=== PATIENT | female | born 1985 | race Two or more races ===

== ENCOUNTER → 2020-04-26 | Outpatient (CLI) | payer OTHER ==
[~2020-04-26] MED LIST: ASPI81CH33 PO; IBUP80TA PO; OXYC1TAB23 PO; PRENTAB9 PO; TUMS750C22 PO
--- NOTE | 2020-06-13 09:23 | REP ---
OB ULTRASOUND TECHNIQUE: Real time sonographic evaluation of gravid uterus performed. There is a single living intrauterine gestation. The estimated gestational age is 35 weeks, 1 day, based on today's ultrasound measurements. EDC 05/30/2020. This corresponds well with the EDC based on the last menstrual period of 05/31/2020. position is cephalic. Placenta is anterior and grade 2 with no previa or abruption. Visualized anatomy today includes the spine, three vessel cord, lateral ventricles, stomach, thalami, kidneys and bladder, which were all grossly unremarkable. Posterior fossa, four chamber heart, ventricular outflow tracts, and cord insertion, as well as upper lip are not well visualized. BPD = 86 mm = 35 weeks, 6 days. AC = 307 mm = 34 weeks, 5 days. HC = 317 mm = 35 weeks, 5 days. FL = 66 mm = 33 weeks, 6 days. heart rate was 142 beats per minute. Amniotic fluid appears within normal limits with AVEL of 15.72. MTDD
== END ==
LOC: M RAD 15:15
PROVIDERS: ATTEND Advanced Practice Midwife
DX: Z34.83 Encounter for supervision of other normal pregnancy, third trimester (principal); Z3A.35 35 weeks gestation of pregnancy

== ENCOUNTER → 2020-05-01 | Outpatient (REF) | payer OTHER | LOC: M SFHCWAGY 13:47 | PROVIDERS: ATTEND Advanced Practice Midwife | DX: Z36.85 Encounter for antenatal screening for Streptococcus B (principal) | CPT/HCPCS: 87081; G0463 ==

== ENCOUNTER → 2020-05-15 | Outpatient (CLI) | payer OTHER | LOC: M WHC 13:49 | PROVIDERS: ATTEND Advanced Practice Midwife | DX: Z34.82 Encounter for supervision of other normal pregnancy, second trimester (principal) ==

== ENCOUNTER 2020-06-05 18:11 | Inpatient (IN) | payer OTHER ==
[~2020-06-05] VITALS: Ht 157.5 cm; Wt 106.0 kg
[2020-06-05] MEDS ORDERED: ASPI81CH33 PO (18:30)
[2020-06-05] MEDS ORDERED: TUMS750C22 PO (18:30)
[2020-06-05] MEDS ORDERED: PRENTAB9 PO (18:30)
[2020-06-05 18:40] VITALS: BP 117/74
--- NOTE | 2020-06-05 19:44 | HPEPDOC ---
Obstetrical History & Physical General Date of Admission Jun 05, 2020 at 18:11 History of Present Illness 34yo at 40+5 weeks EGA. GDMA1; diet controlled. No VB/LOF/uctx. +FM. Pr esents for IOL. No WILCOX/sob/cp/f/c/n/v. Chief Complaint: Induction of labor Information Provided By: Patient, RN/MD Age: 34 : 1 Term: 0 Pre-term: 0 Abortions: 0 Livin Care Care: Good Care Dating Final EDC: May 31, 2020 Final EDC by: 1st trimester (US) Antepartum Course Diagnos(e)s Gestational DM ; White's Class A1 / diet controlled. 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 Has not been taking Valtrex. No recent outbreak concerns.) Past Medical History Medical History Asthma (controlled with Albuterol PRN) Surgical History: Other (Breast reduction) Family History Significant Family History: No pertinent family hx Social History Marital Status: Family situation: Spouse/partner home Psychosocial History: No pertinent psych hx * Smoker: non-smoker Alcohol: Denies Drugs: denies Abuse Violence Screening Have you been hit/kicked/slapp: No Have you been sexually assault: No Allergies Coded Allergies: sulfamethoxazole (Verified Allergy, Severe, DIFFICULTY BREATHING/ RASH, 06/05/20) trimethoprim (Verified Allergy, Severe, DIFFICULTY BREATHING/ RASH, 06/05/20) doxycycline (Verified Adverse Reaction, Mild, rash , 06/05/20) Medications Scheduled Aspirin (Aspirin) 81 Mg Tab.chew, 1 TAB PO DAILY for pain Calcium Carbonate (Tums) 300 Mg Tab.chew, 1 TAB PO BID No.137/Iron/Folic Acd ( Vitamin Tablet) 1 Each Tablet, 1 TAB PO DAILY Physical Examination Physical Examination GENERAL: Alert and oriented times three. BREAST: . ABDOMEN: Gravid and non-tender to touch. FETUS: Is vertex (VTX) by sterile vaginal examination (SVE), fetus is vertex (VTX) by Parish. HEART RATE: Regular rate and rhythm. LUNGS: Clear to auscultation (CTA). EXTREMITIES: No edema. No clonus. Deep tendon reflexes (DTRs) + . Vital Signs/I&O Vital Signs Date Time Temp Pulse Resp B/P (MAP) Pulse Ox O2 Delivery O2 Flow Rate FiO2 06/05/20 18:40 98.3 88 117/74 (88) Anatomy Ultrasound Normal Anatomy: Yes (2nd TM routine US) Placenta Previa: No Vaginal Examination Dilation: 1cm Effacement: 50% Station: -3 Cervical Consistency: Soft Cervical Position: Middle Presentation: Cephalic presentation Assessment Heart Rate (FHR): 135 Variability: Moderate Accelerations: Positive Decelerations: None Tocometer Contractions: No Frequency: irregular, greater than 10 min/apart Assessment/Plan Assessment Karely is a 34-year-old (G)1 para (P)0-0-0-0 at 40+5 weeks. Presents to Labor and Delivery (L&D) for IOL. Plan Admit and orient. City Collector and consent. Diet: Regular. Group B Streptococcus (GBS) negative Labs and intravenous (IV) per unit protocol. Counseled on Pitocin and induction of labor (IOL). Plan is to start with cervical ripening via Misoprostol 50mcg SL q4h until favorable. Lactated Ringers (LR): Bolus 1000 mL, then at 125 mL/hr prior to epidural. Anticipate normal spontaneous delivery (). C-S as appropriate. LOREN LANDRUM DO Jun 05, 2020 19:19
[2020-06-05] MEDS: miSOPROStol 50 MCG 1/2 TAB (S0191) SL SCH (20:04)
[2020-06-05 20:05] VITALS: BP 118/69
[2020-06-05 20:10] LABS: GLUCOSE,RANDOM 100 MG/DL (LESS THAN 200)
[2020-06-05 20:13] LABS: HEMOGLOBIN 11.3 g/dl (12.0-15.5); MEAN CORPUSCULAR HGB CONC 33.2 g/dl (32.0-36.5); MEAN CORPUSCULAR VOLUME 81.3 fl (80.0-96.0); PLATELET COUNT, AUTOMATED 125 10^3/uL (150-450); RED BLOOD COUNT 4.18 10^6/uL (4.00-5.40); WHITE BLOOD COUNT 8.3 10^3/uL (4.0-10.0)
[2020-06-05 22:02] LABS: HIV 1&2 SCREEN CENTAUR NEGATIVE (NEGATIVE)
[2020-06-05 23:55] VITALS: BP 136/66
[2020-06-06] VITALS (43 sets, daily range): BP systolic 99–147; BP diastolic 50–84
[2020-06-06] MEDS: miSOPROStol 50 MCG 1/2 TAB (S0191) SL SCH ×3 (00:21→08:00)
--- NOTE | 2020-06-06 06:33 | IPNPDOC ---
Obstetrical Progress Note Date of Service Jun 06, 2020 Subjective Pt resting comfortably. No VB/LOF Objective Vital Signs Date Time Temp Pulse Resp B/P (MAP) Pulse Ox O2 Delivery O2 Flow Rate FiO2 06/05/20 18:45 79 06/05/20 18:40 98.3 117/74 (88) Assessment Heart Rate Tracing: Category I Tocometer Contractions: Yes Frequency: irregular Sterile Vaginal Examination Dilation: 2cm Effacement (%): 70% Station: -3 Cervical Consistency: Soft Cervical Position: Middle Postion/Presentation: Cephalic presentation Assessment and Plan Status: Reassuring Additional Comments Cervix is favorable. Start Pitocin low dose protocol. LOREN LANDRUM DO Jun 06, 2020 06:33
[2020-06-06] MEDS ORDERED: OXYTOCIN DRIP 30 UNITS in IV 1 EA IV SCH (06:45)
[2020-06-06] MEDS ORDERED: BUTORPHANOL 2 MG/ML INJ (J0595) IV ONE (08:45)
[2020-06-06] MEDS ORDERED: PROMETHAZINE INJ 25 MG/ML VIAL (J2550) IV ONE (08:45)
[2020-06-06] MEDS: LR 1,000 ML IV SCH ×5 (10:04→23:27)
[2020-06-06 15:10] LABS: HEMATOCRIT 32.3 % (36.0-47.0); HEMOGLOBIN 10.8 g/dl (12.0-15.5); MEAN CORPUSCULAR HEMOGLOBIN 27.6 pg (27.0-33.0); MEAN CORPUSCULAR HGB CONC 33.4 g/dl (32.0-36.5); MEAN CORPUSCULAR VOLUME 82.4 fl (80.0-96.0); PLATELET COUNT, AUTOMATED 108 10^3/uL (150-450); RED BLOOD COUNT 3.92 10^6/uL (4.00-5.40); WHITE BLOOD COUNT 9.3 10^3/uL (4.0-10.0)
[2020-06-06] MEDS ORDERED: FENTANYL 2MCG/ML ROPIVACAINE 0.2% IN 0.9% NACL 100ML IVBAG As Ordered ONE (17:11)
[2020-06-06] MEDS: FENTANYL/ROPIVACAINE/NACL BAG 100 ML EPIDURAL SCH (17:50)
[2020-06-06] MEDS ORDERED: LACTATED RINGER'S 1000 ML IV PRN (18:45)
[2020-06-06] MEDS ORDERED: ONDANSETRON 4MG/2ML VIAL IV PRN (18:45)
[2020-06-06] MEDS ORDERED: diphenhydrAMINE 50MG/ML VIAL (J1200) IV PRN (18:45)
[2020-06-06] MEDS ORDERED: ePHEDrine SULFATE 25 MG/5 ML(5MG/ML) SYRINGE IV PRN (18:45)
[2020-06-06] MEDS ORDERED: REFRIGERATOR IV KEYS XX PRN (18:45)
[2020-06-06] MEDS ORDERED: NALOXONE INJ 0.4MG/1ML VIAL (J2310 PER 1MG) IV PRN (18:45)
[2020-06-06] MEDS ORDERED: EPIDURAL COMMENT XX SCH (18:45)
[2020-06-06] MEDS ORDERED: EPIDURAL/PCA KEYS XX PRN (18:45)
[2020-06-06] MEDS ORDERED: CALCIUM CARBONATE 500 MG CHEW U/D PO PRN (21:30)
[2020-06-06] MEDS ORDERED: LR 500 ML IV ONE (23:30)
[2020-06-07] VITALS (11 sets, daily range): BP systolic 104–136; BP diastolic 51–72
[2020-06-07] MEDS: FENTANYL/ROPIVACAINE/NACL BAG 100 ML EPIDURAL SCH (01:21)
[2020-06-07 01:28] LABS: HEMATOCRIT 33.5 % (36.0-47.0); HEMOGLOBIN 10.7 g/dl (12.0-15.5); MEAN CORPUSCULAR HEMOGLOBIN 26.6 pg (27.0-33.0); MEAN CORPUSCULAR HGB CONC 31.9 g/dl (32.0-36.5); MEAN CORPUSCULAR VOLUME 83.3 fl (80.0-96.0); PLATELET COUNT, AUTOMATED 115 10^3/uL (150-450); RED BLOOD COUNT 4.02 10^6/uL (4.00-5.40); WHITE BLOOD COUNT 10.6 10^3/uL (4.0-10.0)
[2020-06-07] MEDS ORDERED: ceFAZolin SOD 2 GM in IV 1 EA IV ONE (02:00)
[2020-06-07] MEDS ORDERED: AZITHROMYCIN INJ 500 MG, VIAL MATE ADAPTER 1 EACH in D5W 250 ML IV ONE (02:00)
[2020-06-07] MEDS ORDERED: BICITRA 30ML SOLN UDC PO ONE (02:00)
--- NOTE | 2020-06-07 03:20 | IPNPDOC ---
Text Note Date of Service The patient was seen on 06/07/20. NOTE Decision for section Karely is a 34yo with SIUP at 41w0d undergoing IOL that was started on 06/05. She has a history of well controlled A1GDM and mild intermittent asthma. She has been on pitocin and noted by OZ Arredondo to have no cervical change for >5 hours with intermittent Cat I-II FHRT. She received epidural earlier this evening, but she feels her contractions as uncomfortable currently. Vitals wnl, afebrile SCE: 675/-3, fluid is clear Currently Cat I FHRT with bl 150's, +accels, -decels, mod denilson Conetoe: ctx q3-5min Discussed diagnosis of arrest of dilation with patient and went over all r/b/a to PLTCS and blood transfusion. Consent forms signed. Discussed wound care for after surgery Team aware of plan, will proceed to OR when ready IV Anceph 2g and IV azithromycin 500mg Bicitra Jerrica Cheek MD VS,Paulina, I+O VSPaulina I+O Laboratory Tests 06/06/20 15:00 06/07/20 01:21 Vital Signs Date Time Temp Pulse Resp B/P (MAP) Pulse Ox O2 Delivery O2 Flow Rate FiO2 06/07/20 01:56 99.4 112 20 116/59 (78) 06/06/20 23:30 98 06/06/20 10:30 Room Air I&O- Last 24 Hours up to 6 AM 06/07/20 06:00 Intake Total 5804 ml Output Total 2850 ml Balance 2954 ml Jerrica Cheek MD Jun 07, 2020 03:20
[2020-06-07] MEDS ORDERED: LIDOCAINE 2% W/EPINEPHRINE 20ML VIAL **PRES FREE As Ordered ONE (03:43)
[2020-06-07] MEDS ORDERED: MORPHINE PRES-FREE INJ 10 MG/10 ML VIAL (J2274) As Ordered ONE (03:43)
[2020-06-07] MEDS ORDERED: ONDANSETRON 4MG/2ML VIAL As Ordered ONE (03:43)
[2020-06-07] MEDS ORDERED: PHENYLephrine HCL 500 MCG/5 ML (100MCG/ML) SYRINGE (J2370) As Ordered ONE (03:43)
[2020-06-07] MEDS ORDERED: KETOROLAC 60MG 2ML VIAL As Ordered ONE (03:43)
[2020-06-07] MEDS ORDERED: OXYTOCIN 30 UNITS IN 0.9% NaCl 500ML IV BAG (J2590) As Ordered ONE ×2 (03:43→05:54)
[2020-06-07] MEDS ORDERED: SODIUM BICARBONATE 8.4% INJ 50 ML SYRINGE As Ordered ONE (03:43)
[2020-06-07] MEDS ORDERED: dexameTHASONE 4 MG/ML 1ML VIAL (J1100 PER 1MG) As Ordered ONE (03:43)
[2020-06-07] MEDS ORDERED: METOCLOPRAMIDE INJ 10MG/2ML VIAL (J2765 PER 1) As Ordered ONE (03:49)
[2020-06-07] MEDS ORDERED: METOCLOPRAMIDE INJ 10MG/2ML VIAL (J2765 PER 1) IV PRN (03:56)
[2020-06-07] MEDS ORDERED: ONDANSETRON 4MG/2ML VIAL IV PRN ×2 (03:56→04:30)
[2020-06-07] MEDS ORDERED: NALBUPHINE HCL 10 MG/ML AMP (J2300) IV PRN (03:56)
[2020-06-07] MEDS ORDERED: NALOXONE INJ 0.4MG/1ML VIAL (J2310 PER 1MG) IV PRN ×2 (03:56)
[2020-06-07] MEDS ORDERED: LR 1,000 ML IV SCH ×2 (04:30→04:56)
[2020-06-07] MEDS ORDERED: fentaNYL 100 MCG/2 ML INJECTION (J3010) IV PRN (04:30)
[2020-06-07] MEDS ORDERED: oxyCODONE 5MG TAB PO PRN (04:30)
[2020-06-07] MEDS ORDERED: KETOROLAC 30 MG/ML 1ML VIAL IV PRN (04:30)
[2020-06-07] MEDS ORDERED: OXYTOCIN DRIP 30 UNITS in IV 1 EA IV SCH (04:56)
[2020-06-07] MEDS ORDERED: RHOGAM 300 MCG (1500 IU) INJ (J2790) IM SCH (05:00)
[2020-06-07] MEDS ORDERED: PERCOCET 5MG/325MG TAB PO PRN (05:00)
[2020-06-07] MEDS ORDERED: MEASLES,MUMPS,RUBELLA VACCINE INJ (MMR-II) (90707) SC SCH (05:00)
[2020-06-07 05:23] LABS: HEMATOCRIT 30.2 % (36.0-47.0); HEMOGLOBIN 9.7 g/dl (12.0-15.5); MEAN CORPUSCULAR HEMOGLOBIN 27.2 pg (27.0-33.0); MEAN CORPUSCULAR HGB CONC 32.1 g/dl (32.0-36.5); MEAN CORPUSCULAR VOLUME 84.6 fl (80.0-96.0); PLATELET COUNT, AUTOMATED 110 10^3/uL (150-450); RED BLOOD COUNT 3.57 10^6/uL (4.00-5.40); WHITE BLOOD COUNT 13.3 10^3/uL (4.0-10.0)
[2020-06-07] MEDS: diphenhydrAMINE 50MG/ML VIAL (J1200) IV PRN ×3 (07:41→21:06)
[2020-06-07] MEDS: PRENATAL VITAMINS CHEWABLE TABLET PO SCH (09:46)
[2020-06-07] MEDS: DOCUSATE SODIUM 100 MG CAP PO SCH ×2 (09:46→21:06)
[2020-06-07] MEDS: KETOROLAC 30 MG/ML 1ML VIAL IV SCH ×3 (10:45→23:00)
[2020-06-08] MEDS: IBUPROFEN 800 MG TAB PO SCH ×3 (00:54→17:27)
[2020-06-08 02:00] VITALS: BP 122/58
[2020-06-08 06:00] VITALS: BP 105/55
[2020-06-08] MEDS: PERCOCET 5MG/325MG TAB PO PRN ×2 (06:12→20:09)
[2020-06-08] MEDS ORDERED: IBUPROFEN 800 MG TAB PO SCH (07:00)
[2020-06-08 07:23] LABS: HEMATOCRIT 24.9 % (36.0-47.0); HEMOGLOBIN 8.3 g/dl (12.0-15.5); MEAN CORPUSCULAR HEMOGLOBIN 27.6 pg (27.0-33.0); MEAN CORPUSCULAR HGB CONC 33.3 g/dl (32.0-36.5); MEAN CORPUSCULAR VOLUME 82.7 fl (80.0-96.0); PLATELET COUNT, AUTOMATED 121 10^3/uL (150-450); RED BLOOD COUNT 3.01 10^6/uL (4.00-5.40); WHITE BLOOD COUNT 12.6 10^3/uL (4.0-10.0)
--- NOTE | 2020-06-08 07:36 | IPNPDOC ---
Progress Note Date of Service: Jun 08, 2020 Day#: 1 Progress Note SUBJECT: Doing well without complaints. Ambulating, voiding and pain is well- controlled. Reports minimal lochia. OBJECTIVE: VITAL SIGNS: Within normal limits, afebrile. Alert and oriented times three. Abdomen: Fundus firm at U-2. Soft, NTTP. Incision: Clean dry and intact well approximated with Steri-Strips, nonerythe matous Ext: neg calf tenderness. ASSESSMENT: /postoperative day #1 status post delivery. Recovering in stable condition. PLAN: 1. Continue routine /postoperative care 2. Discharge plans for tomorrow VS, I&O, 24H, Fishbone Vital Signs/I&O Vital Signs Date Time Temp Pulse Resp B/P (MAP) Pulse Ox O2 Delivery O2 Flow Rate FiO2 06/08/20 06:12 18 06/08/20 06:00 97.2 77 105/55 (72) 98 Room Air I&O- Last 24 Hours up to 6 AM 06/08/20 06:00 Intake Total 350 ml Output Total 1075 ml Balance -725 ml Laboratory Data 24H LABS Laboratory Tests 2 06/08/20 07:00: Nucleated Red Blood Cells % (auto) 0.0 CBC/BMP Laboratory Tests 06/08/20 07:00 MARIA GUADALUPE MOSELEY MD. Jun 08, 2020 07:36
[2020-06-08] MEDS: PRENATAL VITAMINS CHEWABLE TABLET PO SCH (08:29)
[2020-06-08] MEDS: DOCUSATE SODIUM 100 MG CAP PO SCH ×2 (08:29→20:08)
[2020-06-08] MEDS ORDERED: diphenhydrAMINE 25MG CAP PO PRN (09:30)
[2020-06-08 10:00] VITALS: BP 113/58
[2020-06-08 14:00] VITALS: BP 133/65
[2020-06-08 18:26] VITALS: BP 111/55
[2020-06-08 22:00] VITALS: BP 109/58
[2020-06-09] MEDS: IBUPROFEN 800 MG TAB PO SCH ×2 (01:09→10:30)
[2020-06-09 06:00] VITALS: BP 118/66
--- NOTE | 2020-06-09 07:15 | IPNPDOC ---
Text Note Date of Service The patient was seen on 06/09/20. NOTE PO #2 Feels well. Adequate pain management. . Tolerating diet. Voiding and passing flatus VSS, afebrile, normotensive Breasts soft, nipples intact Fundus firm, NT Wound clean, dry, well approximated. Steri strips intact. No S/S infection Lochia rubra scant without odor PO #2 Consider discharge this pm or tomorrow pending jaundice treatment. Routine care VS,Fishbone, I+O VS, Fishbone, I+O Vital Signs Date Time Temp Pulse Resp B/P (MAP) Pulse Ox O2 Delivery O2 Flow Rate FiO2 06/09/20 06:00 97.8 84 18 118/66 (83) 06/08/20 20:39 Room Air 06/08/20 14:00 98 I&O- Last 24 Hours up to 6 AM 06/09/20 06:00 Intake Total 480 ml Output Total 400 ml Balance 80 ml Nell Locke CNM Jun 09, 2020 07:15
[2020-06-09] MEDS: DOCUSATE SODIUM 100 MG CAP PO SCH (10:30)
[2020-06-09] MEDS: PRENATAL VITAMINS CHEWABLE TABLET PO SCH (10:30)
[2020-06-09] MEDS ORDERED: IBUP80TA PO (12:52)
[2020-06-09] MEDS ORDERED: OXYC1TAB23 PO (12:53)
--- NOTE | 2020-06-25 09:02 | RO ---
DATE OF OPERATION: 06/07/2020 PREOPERATIVE DIAGNOSIS: Arrest of dilation. POSTOPERATIVE DIAGNOSIS: Arrest of dilation. OPERATION PERFORMED: Primary low transverse section. SURGEON: Dr. Jerrica Cheek WINDOW TRIMMER: Jessica Arredondo INDICATION FOR OPERATION: Karely is a 34-year-old, G1 now P1-0-0-1 undergoing induction of labor at 41 weeks. Her history was significant for gestational diabetes type A1 (A1GDM), well controlled with diet and she has mild intermittent asthma as well. She was on Pitocin and progressed to 6/-3 but had no further decent and no further change in her cervix for greater than six hours. MATERIAL FORWARDED TO THE LAB FOR EXAMINATION: None. DESCRIPTION OF FINDINGS: Male in cephalic presentation. Apgars 9 and 9. Weight 3520 grams or 7 pounds 12 ounces. Normal-appearing uterus, fallopian tubes and ovaries. INFECTION CLASSIFICATION: 2. ESTIMATED BLOOD LOSS: 700 mL of surgical blood loss plus 450 mL of blood clot was noted with the vaginal sweep at the end of the procedure. IV FLUIDS: 900 mL of lactated Ringer's. URINE OUTPUT: 100 mL of clear yellow urine. DESCRIPTION OF OPERATION: After obtaining informed consent, the patient was taken to the operating room. She had a category 1 heart rate tracing prior. A Harkins catheter was already in place secondary to her epidural. Bilateral sequential compression devices were placed. She received 2 grams of IV Ancef as well as 500 mg of IV azithromycin. She was prepped and draped in normal sterile fashion in the dorsal supine position with a left lateral tilt. Timeout was performed to confirm patient name, date of , procedure and indication. The team was in agreement. Epidural anesthesia was found to be adequate using an Allis clamp. Pfannenstiel skin incision was made with the scalpel, carried through to the underlying layer of fascia. Fascia was incised in the midline and the incision was extended laterally with Ramirez scissors. Superior and inferior aspects of the fascial incision were grasped with Lj clamps, elevated and the underlying rectus muscles were dissected off bluntly and sharply. Peritoneum was entered digitally and rectus muscles were in the midline. Peritoneal incision was extended superiorly and inferiorly with good visualization of the bladder. Bladder blade was inserted and the vesicouterine peritoneum was identified, grasped with pickups and entered sharply with Metzenbaum scissors. Incision was extended laterally and the bladder flap was created digitally. Bladder blade was reinserted and the lower uterine segment was scored in a transverse fashion with a scalpel. Uterus was entered bluntly and the incision was extended with traction. Bladder blade was removed and the 's head was elevated to the level of the incision, fundal pressure was applied and head was delivered atraumatically in the OP position. Anterior shoulder, posterior shoulder and corpus were delivered without difficulty. Nose and mouth were suctioned with bulb suction. Cord was clamped x2 and cut. was handed off to the awaiting nurses, and maternal blood type was O-positive so umbilical cord blood was obtained. Placenta was removed with uterine massage and traction on the cord, and the uterus was exteriorized and cleared of all clot and debris. Uterine incision was repaired with 0 Vicryl suture in a running locking fashion. A second layer of 0 Monocryl was used to close the hysterotomy incision in an imbricating fashion. Uterine incision was inspected and hemostasis was noted. Posterior cul-de-sac was irrigated. Uterus was returned to the abdomen and gutters were cleared of all clot. Hemostasis was noted and peritoneum was closed using 3-0 Vicryl suture in a running fashion. Rectus muscles were noted to be well reapproximated naturally. Fascia was reapproximated with 0 Vicryl suture in a running fashion. Subcutaneous tissue was copiously irrigated. Day's fascia was reapproximated using 3-0 Vicryl suture in a running fashion. Skin edges were reapproximated using three inverted interrupted stitches using 3-0 Vicryl suture followed by a running subcuticular stitch using 4-0 Monocryl suture. Incision was cleaned using a wet lap dry to the dry lap, Steri-Strips were applied in the usual fashion perpendicular to the Pfannenstiel incision. Pressure dressing was applied over the entire surgical incision. Vagina was cleared of all blood clot without active bleeding noted. The uterus firmed up with massage but she was given 0.2 mg of IM Methergine at that time for continued maintenance of uterine tone. Fundus was firm at U-2 at that point. All counts were correct x2. Procedure was without complications and the patient tolerated the procedure well. She was taken to the recovery room on labor and delivery in stable condition. MAYRA
--- NOTE | 2020-06-25 11:58 | DS ---
DATE OF ADMISSION: 06/05/2020 DATE OF DISCHARGE: 06/09/2020 BRIEF HISTORY: A 34-year-old, G1, P0, female at 40 and 5/7 weeks gestation with history of class A1 gestational diabetes, who presents for labor induction. HOSPITAL COURSE: Patient was admitted on 06/05/2020. She labor induction with Misoprostol. She made small progress in labor. She was eventually diagnosed with arrest of dilation as well as intermittent category 2 heart tracing. Decision was made to perform . On 06/07/2020, she underwent a primary low transverse section without complication. Postoperative course was significant for hemoglobin of 8.3 grams/dL. She had adequate return of bowel and bladder function. She seemed stable for discharge on postoperative day #2. ADMISSION DIAGNOSES: at 40+ weeks, gestational diabetes. DISCHARGE DIAGNOSIS: Delivered. PROCEDURE: Primary low transverse section. DISPOSITION: Patient will follow-up with Dr. Cheek in two weeks. Instructions were reviewed. MAYRA
== END 2020-06-09 14:30 | disposition home or self-care (01) | DRG 540 ==
LOC: M LDI 18:11 → M OBS 06-07 06:25
PROVIDERS: ADMIT Obstetrics & Gynecology; ATTEND Obstetrics & Gynecology
PROC: 3E033VJ Introduction of Other Hormone into Peripheral Vein, Percutaneous Approach (ICD-10-PCS; 2020-06-05)
PROC: 10D00Z1 Extraction of Products of Conception, Low, Open Approach (ICD-10-PCS; principal; 2020-06-07 02:17)
DX: O48.0 Post-term pregnancy (principal); O24.420 Gestational diabetes mellitus in childbirth, diet controlled; J45.20 Mild intermittent asthma, uncomplicated; Z37.0 Single live birth; Z3A.40 40 weeks gestation of pregnancy; Z88.2 Allergy status to sulfonamides; Z88.8 Allergy status to other drugs, medicaments and biological substances; O99.52 Diseases of the respiratory system complicating childbirth; O62.0 Primary inadequate contractions

== ENCOUNTER → 2020-08-03 | Outpatient (REF) | payer OTHER | LOC: M PLALAB 16:32 | PROVIDERS: ATTEND Obstetrics & Gynecology | DX: Z86.32 Personal history of gestational diabetes (principal) ==

== ENCOUNTER → 2021-02-27 | Outpatient (REF) | payer OTHER | LOC: M PLALAB 16:14 | PROVIDERS: ATTEND Obstetrics & Gynecology | DX: R87.610 Atypical squamous cells of undetermined significance on cytologic smear of cervix (ASC-US) (principal); Z12.4 Encounter for screening for malignant neoplasm of cervix | CPT/HCPCS: 87624; G0123 ==

== ENCOUNTER → 2022-06-23 | Outpatient (REF) | payer OTHER | LOC: M PLALAB 16:48 | PROVIDERS: ATTEND Obstetrics & Gynecology | DX: Z12.4 Encounter for screening for malignant neoplasm of cervix (principal) | CPT/HCPCS: 36415; 84702; 87624; G0123 ==

== ENCOUNTER → 2022-06-25 | Outpatient (CLI) | payer OTHER | LOC: M PLALAB 15:42 | PROVIDERS: ATTEND Obstetrics & Gynecology | DX: O20.0 Threatened abortion (principal); Z3A.00 Weeks of gestation of pregnancy not specified ==

== ENCOUNTER → 2022-07-11 | Outpatient (CLI) | payer OTHER | LOC: M PLALAB 10:11 | PROVIDERS: ATTEND Obstetrics & Gynecology | DX: O03.9 Complete or unspecified spontaneous abortion without complication (principal) ==

== ENCOUNTER → 2023-02-13 | Outpatient (REF) | payer OTHER | LOC: M PLALAB 15:19 | PROVIDERS: ATTEND Nurse Practitioner Family | DX: Z53.9 Procedure and treatment not carried out, unspecified reason (principal) ==

== ENCOUNTER 2023-02-16 11:48 | Emergency (ER) | payer OTHER ==
[~2023-02-16] VITALS: Ht 160 cm; Wt 97.4 kg
[2023-02-16 11:49] VITALS: BP 149/75
[2023-02-16] MEDS ORDERED: IBUPROFEN 600MG TAB PO ONE (12:25)
[2023-02-16 12:49] LABS: BASO % 0.5 % (0.0-1.0); EOS # 0.3 10^3/uL (0.0-0.5); EOS % 4.1 % (0.0-3.0); HEMATOCRIT 39.3 % (36.0-47.0); HEMOGLOBIN 12.8 g/dl (12.0-15.5); LYMPH # 2.5 10^3/uL (1.5-5.0); LYMPH % 30.3 % (24.0-44.0); MEAN CORPUSCULAR HEMOGLOBIN 27.5 pg (27.0-33.0); MEAN CORPUSCULAR HGB CONC 32.6 g/dl (32.0-36.5); MEAN CORPUSCULAR VOLUME 84.5 fl (80.0-96.0); MONO # 0.7 10^3/uL (0.0-0.8); MONO % 8.1 % (2.0-8.0); NEUTROPHILS # 4.7 10^3/uL (1.5-8.5); NEUTROPHILS % 56.8 % (36.0-66.0); PLATELET COUNT, AUTOMATED 194 10^3/uL (150-450); RED BLOOD COUNT 4.65 10^6/uL (4.00-5.40); WHITE BLOOD COUNT 8.3 10^3/uL (4.0-10.0)
[2023-02-16 13:14] LABS: CK-MB VALUE MASS < 1.0 NG/ML (<3.6)
[2023-02-16 13:16] LABS: ALBUMIN 3.5 G/DL (3.2-5.2); ALKALINE PHOSPHATASE 70 U/L (46-116); ALT/SGPT 20 U/L (7.0-40); AST/SGOT 18 U/L (<34); BILIRUBIN,TOTAL 0.5 MG/DL (0.3-1.2); BLOOD UREA NITROGEN 15 MG/DL (9-23); CALCIUM LEVEL 8.6 MG/DL (8.5-10.1); CARBON DIOXIDE LEVEL 30 MMOL/L (20-31); CHLORIDE LEVEL 108 MMOL/L (98-107); CPK CREATINE PHOSPHOKINASE 99 U/L (34-145); CREATININE FOR GFR 0.82 MG/DL (0.55-1.30); GLOMERULAR FILTRATION RATE > 60.0 (>60); GLUCOSE, FASTING 89 MG/DL (60-100); MB/CK RELATIVE INDEX 1.01 (< OR =4); SODIUM LEVEL 141 MMOL/L (136-145); TOTAL PROTEIN 6.4 G/DL (5.7-8.2)
== END 2023-02-16 13:28 | disposition home or self-care (01) ==
LOC: M ED 11:48
DX: M54.12 Radiculopathy, cervical region (principal); I45.10 Unspecified right bundle-branch block; J45.909 Unspecified asthma, uncomplicated; F10.10 Alcohol abuse, uncomplicated; Z88.2 Allergy status to sulfonamides; Z88.5 Allergy status to narcotic agent

== ENCOUNTER → 2024-01-13 | Outpatient (REF) | payer OTHER ==
[2024-01-13 18:02] LABS: BASO # 0.1 10^3/uL (0.0-0.2); BASO % 0.6 % (0.0-1.0); EOS # 0.2 10^3/uL (0.0-0.5); EOS % 1.9 % (0.0-3.0); HEMATOCRIT 44.4 % (36.0-47.0); HEMOGLOBIN 14.2 g/dl (12.0-15.5); LYMPH # 3.3 10^3/uL (1.5-5.0); LYMPH % 33.1 % (24.0-44.0); MEAN CORPUSCULAR HEMOGLOBIN 27.5 pg (27.0-33.0); MEAN CORPUSCULAR VOLUME 85.9 fl (80.0-96.0); MONO # 0.8 10^3/uL (0.0-0.8); MONO % 7.8 % (2.0-8.0); NEUTROPHILS # 5.6 10^3/uL (1.5-8.5); NEUTROPHILS % 56.3 % (36.0-66.0); PLATELET COUNT, AUTOMATED 262 10^3/uL (150-450); RED BLOOD COUNT 5.17 10^6/uL (4.00-5.40)
[2024-01-13 18:26] LABS: ALBUMIN 4.1 G/DL (3.2-5.2); ALKALINE PHOSPHATASE 92 U/L (46-116); ALT/SGPT 23 U/L (7.0-40); AST/SGOT 25 U/L (<34); BILIRUBIN,TOTAL 0.4 MG/DL (0.3-1.2); BLOOD UREA NITROGEN 11 MG/DL (9-23); CALCIUM LEVEL 9.6 MG/DL (8.5-10.1); CARBON DIOXIDE LEVEL 30 MMOL/L (20-31); CHLORIDE LEVEL 105 MMOL/L (98-107); CREATININE FOR GFR 0.75 MG/DL (0.55-1.30); GLOMERULAR FILTRATION RATE > 60.0 (>60); GLUCOSE, FASTING 94 MG/DL (60-100); IRON (FE) 82 UG/DL (50-170); PERCENT SATURATION 25.9 % (13.2-45.0); POTASSIUM SERUM 4.1 MMOL/L (3.5-5.1); SODIUM LEVEL 140 MMOL/L (136-145); TOTAL IRON BINDING CAPACITY 316 UG/DL (250-425); TOTAL PROTEIN 7.3 G/DL (5.7-8.2)
[2024-01-13 18:29] LABS: FREE T4 0.97 NG/DL (0.89-1.76); THYROID STIMULATING HORMONE 1.897 uIU/ML (0.55-4.78)
[2024-01-13 18:30] LABS: FERRITIN 34.6 NG/ML (7.3-270.7)
[2024-01-13 18:31] LABS: VITAMIN B12 LEVEL 850 PG/ML (211-911)
[2024-01-22 15:11] LABS: VITAMIN A, RETINOL LEVEL 39.1 ug/dL (18.9-57.3); VITAMIN B6,PYRIDOXAL PHOSPHATE 6.6 ug/L (3.4-65.2)
== END ==
LOC: M SFHCADAM 13:56
PROVIDERS: ATTEND Physician Assistant
DX: L21.9 Seborrheic dermatitis, unspecified (principal)

== ENCOUNTER → 2024-04-14 | Outpatient (REF) | payer OTHER ==
[2024-04-16 11:20] LABS: HPV APTIMA Not Detected (Not Detected)
== END ==
LOC: M SFHCWAGY 13:12
PROVIDERS: ATTEND Nurse Practitioner Family
DX: Z12.4 Encounter for screening for malignant neoplasm of cervix (principal)
CPT/HCPCS: 87624; G0123

== ENCOUNTER 2024-10-04 07:20 | Day surgery (SDC) | payer OTHER ==
[~2024-10-04] VITALS: Ht 157.5 cm; Wt 103.0 kg
[~2024-10-04 07:20] MED LIST changes: +ACET-907 PO; +D 50CAP2 PO; +FERR32TA PO; +FLON1SPR; +FLUT1BLS5 INH; +IBUP-1114 PO; +LEVO25TA5 PO; +LINZ72CA PO
[2024-10-04 08:53] VITALS: TEMP 96.7
[2024-10-04 09:15] VITALS: BP 117/58; O2SAT 100
== END 2024-10-04 09:37 | disposition home or self-care (01) ==
LOC: M OPP 07:20
PROVIDERS: ATTEND Internal Medicine Gastroenterology
DX: K58.1 Irritable bowel syndrome with constipation (principal); R19.4 Change in bowel habit; Z88.2 Allergy status to sulfonamides; Z88.8 Allergy status to other drugs, medicaments and biological substances; Z79.899 Other long term (current) drug therapy

== ENCOUNTER → 2025-01-25 | Outpatient (CLI) | payer OTHER | LOC: M WHC 09:02 | PROVIDERS: ATTEND Nurse Practitioner Family | DX: R92.313 Mammographic fatty tissue density, bilateral breasts (principal); Z80.3 Family history of malignant neoplasm of breast | CPT/HCPCS: 77066; G0279 ==

== ENCOUNTER → 2025-06-28 | Outpatient (CLI) | payer OTHER ==
[2025-06-28 15:31] LABS: FREE T4 1.01 NG/DL (0.89-1.76)
[2025-06-28 16:11] LABS: ESTIMATED AVERAGE GLUCOSE 111.0 MG/DL (60-110)
== END ==
LOC: M PLALAB 12:22
PROVIDERS: ATTEND Nurse Practitioner Family
DX: Z01.419 Encounter for gynecological examination (general) (routine) without abnormal findings (principal); B37.31 Acute candidiasis of vulva and vagina